=== PATIENT | male | born 1985 | race African-American/Black ===

== ENCOUNTER 2016-09-18 18:11 | Emergency (ER) | payer SELFPAY ==
[2016-09-18 18:15] VITALS: BP 138/82; BMI 20.7
--- NOTE | 2016-09-18 19:01 | DR.GENAD ---
HPI - PCP Primary Care Physician: KRISTEN - HPI Comment HPI Comment: HISTORY BELOW. - Complaint/Symptoms Chief Complaint Doctors Comments: COUGH, CONGESTION AND FEVER SINCE YESTERDAY. HE FEEL LIKE HE HAS THE FLU. HE IS WEAK AND DRAIN OF HIS ENERGY. HE ALSO HAVE SWELLING AND PAIN IN BOTH BIG TOES FOR FEW DAYS THAT IS GETTING WORSE. NO HISTORY OF GOUT. OTC MEDS NOT HELPING. Chief Complaint:: PATIENT STATED THAT HE HAS FEET PAIN AND FEELS LIKE HE HAS THE FLU - Nurses notes reviewed Nurses Notes Review: Yes - Source History Provided: Patient - Mode of Arrival Mode of Arrival: Ambulatory - Timing Onset of Chief Complaint: 09/17/16 Came on: Suddenly - Duration Duration: Constant Duration: Days - Severity Severity: Moderate PMH - PMH Past Medical History: Yes Past Medical History: GERD, PUD Past Surgical History: No - Family History History of Family Medical Conditions: No - Social History Does patient currently use any type of tobacco product: Yes Have you used tobacco products in the last 12 months: Yes Type of Tobacco Use: Cigarettes Does any household member use tobacco: No Alcohol Use: None Do you use any recreational Drugs:: No Lives With: Family Lives Where: Home - infectious screening In the last 2 months have you had wt loss of >10#?: NO Have you had fever, night sweats or hemotysis?: No Have you traveled outside the country in the last 6 months?: No Isolation: Standard ROS - Review of Systems Constitutional: Fever, Weakness, Fatigue, Loss of Appetite. negative: Chills, Diaphoresis Eyes: No Symptoms Reported. negative: Eye Pain, Discharge ENTM: Nose Discharge, Nose Congestion, Throat Pain. negative: Ear Pain Respiratoy: Productive Cough. negative: Short of Breath, Wheezing, Hemoptysis Cardiovascular: Chest Pain. negative: Edema, Palpitations Gastrointestinal/Abdominal: No Symptoms Reported. negative: Abdominal Pain, Diarrhea, Nausea, Vomiting Genitourinary: No Symptoms Reported. negative: Dysuria, Frequency, Hematuria Neurological: Headache, Weakness, Dizziness Musculoskeletal: Joint Pain, Joint Swelling, Muscle Pain Integumentary: Change in Color. negative: Juandice Hematologic/Lymphatic: No Symptoms Reported Endocrine: No Symptoms Reported All Other Systems: Reviewed and Negative PE - Vital Signs Vitals: Temperature 98.3 F Pulse Rate 91 Respiratory Rate 18 Blood Pressure [Right Arm] 111/81 Blood Pressure 138/82 O2 Sat by Pulse Oximetry 97 - General Limitations: No Limitations General Appearance: Alert - Head Head Exam: Normal Inspection - Eyes Eye exam: Normal Appearance, PERRL, EOMI. negative: Scleral Icterus, Conjunctival Injection, Nystagmus, Periorbital Swelling, Periorbital Tenderness - ENT ENT Exam: Normal External Ear Exam External Ear Exam: Normal External Inspection TM/Canal Exam: Bilateral Bulging Nose Exam: Normal Nose Exam Mouth Exam: Normal Inspection Throat Exam: Tonsillar Erythema. negative: Tonsillomegaly, Tonsillar Exudate, Muffled Voice - Neck Neck Exam: Trachea Midline. negative: Tenderness, Meningismus, Lymphadenopathy - Chest Chest Inspection: Symmetric Chest Wall Rise. negative: Tenderness - Respiratory Respiratory Exam: negative: Chest Wall Tenderness, Respiratory Distress Respiratory Exam: Bilateral Rhonchi, Upper Rhonchi, Lower Rhonchi - Cardiovascular Cardiovascular Exam: Regular Rate, Normal Rhythm, Normal Heart Sounds - Abdominal Exam Abdominal Exam: Normal Bowel Sounds, Soft. negative: Tenderness - Extremities Extremities Exam: Tenderness (MPMEDIAL ASPECT MP JOINT BILATERAL GREAT TOES.), Joint Swelling (BOTH GREAT TOES.) - Back Back Exam: Normal Inspection - Neurologic Neurological Exam: Alert, Oriented X3 - Psychiatric Psychiatric Exam: Normal Affect, Normal Mood - Skin Skin Exam: Erythema (BOTH GREAT TOES) MDM - Differential Diagnosis Differential Diagnosis: BRONCHITIS, PNEUMONIA, GOUT, ARTHRITIS Course - Treatment Treatment: SEE ORDERS. IM TORADOL IN ED. ALSO PO AMOXICIL AND TYLENOL 3 IN ED. - Reevaluation 1st: Improved (PAIN DECREASING.) - Education/Counseling Education/Counseling: Patient, Education Educated On: Treatment, Diagnosis, Needs for Follow Up ROR - Labs Reviewed Laboratory Results Reviewed?: Yes Laboratory: Influenza A (H1N1) PCR Not detected (NOT DETECT) 09/18/16 19:11 Influenza Type A (PCR) Negative (NEGATIVE) 09/18/16 19:11 Influenza Type B (PCR) Negative (NEGATIVE) 09/18/16 19:11 - XRAY XRAY Interpreted by: Radiologist XRAY Findings: REPORT DISCUSS WITH PATIENT. - Diagnosis Discharge Problem: Bronchitis, Arthritis - Discharge Plan Disposition: HOME, SELF-CARE Condition: Stable Prescriptions: Acetaminophen W/ Codeine [Tylenol/Codeine #3 300-30 mg] 1 tab PO Q6H PRN #15 tab PRN Reason: Pain Amoxicillin [Amoxil 875 mg] 875 mg PO BID #20 tab Ibuprofen [MOTRIN TAB 600 MG *] 600 mg PO TID PRN #30 tab PRN Reason: Pain/Inflammation - Follow ups/Referrals Follow ups/Referrals: [facility],None [Primary Care Provider] - 3 days - Instructions Instructions: Acute Bronchitis, Arthritis, [id number] Additional Instructions: RETURN TO ED IF WORSE.
--- NOTE | 2016-09-18 19:15 | RAD ---
HISTORY: Cough Study: Portable chest Comparison: March 17, 2016 Findings: The trachea is midline. The cardiac silhouette is unremarkable. The lungs are clear without focal infiltrate or effusion. The bony thorax is unremarkable. IMPRESSION: 1. No acute cardiopulmonary disease. Reported By:
[2016-09-18] MEDS ORDERED: AMOXIL CAP 500 MG PO ONE ×2 (20:00→20:05)
[2016-09-18] MEDS ORDERED: TORADOL 60 MG VIAL IM ONE (20:00)
[2016-09-18] MEDS ORDERED: TYLENOL #3 TAB (W/CODEINE) PO ONE ×2 (20:00→20:05)
[2016-09-18] MEDS ORDERED: TORADOL 60 MG VIAL ONE (20:04)
== END 2016-09-18 20:46 | disposition home or self-care (01) ==
LOC: ER 18:39
DX: J40 Bronchitis, not specified as acute or chronic (principal); M19.90 Unspecified osteoarthritis, unspecified site
CPT/HCPCS: 71010; 87502; 87503; 96372; 99282; 99283; J1885